=== PATIENT | female | born 2000 | race Caucasian/White ===

== ENCOUNTER 2022-04-07 21:09 | Outpatient (CLI) | payer MEDICAID, SELFPAY ==
[2022-04-07 20:55] VITALS: BMI 24.7
[2022-04-07 21:37] VITALS: BP 122/71; PULSE 95
[2022-04-07 21:58] VITALS: RESP 16
[2022-04-07 22:14] LABS: Actim Prom Negative
[2022-04-07 22:52] VITALS: BP 114/58; PULSE 79; TEMP 36.4
[2022-04-07 22:55] VITALS: BP 114/58; PULSE 79; RESP 16; TEMP 36.4
[2022-04-07 22:57] LABS: Amphetamines Screen Urine Negative (Negative); Barbiturates Screen Urine Negative (Negative); Benzodiazepines Screen Urine Negative (Negative); Cocaine Screen Urine Negative (Negative); Opiate Screen Urine Negative (Negative); PCP Screen Urine Negative (Negative); THC Screen Urine Positive (Negative)
== END 2022-04-07 22:59 | disposition home or self-care (01) ==
LOC: OPOB 21:10 → OBGYN 21:30
PROVIDERS: Visit Provider Family Medicine
DX: O26.899 Other specified pregnancy related conditions, unspecified trimester (principal); Z3A.00 Weeks of gestation of pregnancy not specified; N89.8 Other specified noninflammatory disorders of vagina
CPT/HCPCS: 59025; 80306; 84112; 99211

== ENCOUNTER 2022-07-11 21:40 | Inpatient (IN) | payer BC, MEDICAID, SELFPAY ==
[2022-07-11] VITALS (11 sets, daily range): BP systolic 107–137; BP diastolic 62–86; PULSE 88–110; BMI 26.4
[2022-07-11 21:22] LABS: Amphetamines Screen Urine Negative (Negative); Barbiturates Screen Urine Negative (Negative); Benzodiazepines Screen Urine Negative (Negative); Cocaine Screen Urine Negative (Negative); Opiate Screen Urine Negative (Negative); PCP Screen Urine Negative (Negative); THC Screen Urine Positive (Negative)
[2022-07-11 21:34] LABS: Blood Urine Neg (Negative); Glucose Urine UA Norm (Normal); Ketones Urine Negative (Negative); Nitrate Urine Negative (Negative); Protein Urine Neg (Negative); Specific Gravity, Urine 1.015 (1.005-1.030); Urine Appearance Turbid (CLEAR); Urine Color Yellow (Yellow); pH Urine 6 (5-7)
[2022-07-11 21:35] LABS: Add Urine Culture? No; Amorphous Sediment Urine 1+ /hpf; Bacteria Urine 3+ /hpf; Bilirubin Urine Neg (Negative); Leukocyte Esterase Urine 2+ (Negative); RBC Urine 0-4 /hpf (0-2); Sperm Urine 1+ /hpf; Squamous Epithelial Cell Urine 25-40 /hpf (0-5); Urobilinogen Urine Norm (Negative); WBC Urine 40-55 /hpf (0-5)
[2022-07-11 21:55] LABS: Basophils % 0.2 %; Eosinophils % 0.1 %; Hematocrit 34.1 % (37.0-47.0); Lymphocytes # 2.8 10^3/uL (1.5-6.5); Mean Corpuscular HGB Conc 32.3 g/dL (30.0-36.0); Mean Corpuscular Hemoglobin 26.4 pg (28.0-34.0); Mean Corpuscular Volume 81.8 fl (81-99); Mean Platelet Volume 10.4 fL (7.4-10.4); Monocytes # 0.8 10^3/uL (0.2-0.9); Monocytes % 6.3 %; Neutrophils # 9.49 10^3/uL (1.8-8.0); Neutrophils % 72.1 %; Nucleated Red Blood Cells % 0 %; Platelet Count 305 10^3/cmm (130-400); Red Blood Count 4.17 10^6/uL (4.1-5.3); Red Cell Distribution Width 12.1 % (12.1-15.1); White Blood Count 13.2 10^3/uL (4.5-13.0)
[2022-07-11] MEDS: ampicillin 2,000 MG in sodium chloride 0.9% (plus) 50 ML 100 MG IV (22:17)
[2022-07-11] MEDS: dextrose 5%-lactated ringers 1,000 ML 125 ML IV (22:17)
--- NOTE | 2022-07-11 22:25 | P.HP_ITS ---
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 Patient has seen Dr. Collier for 1 visit 5 to 6 weeks after her LMP and has had no care since. She states contractions began this morning approximately 7 AM and increased intensity at 7 PM. She denies any leakage of fluid or bleeding and admits to good movement. Discussion of labor and possible augmentation if contractions spaced apart. We also discussed external monitoring right now showing her contractions to be every 2 to 4 minutes, and that the baby tracing appears reassuring. Patient admitted to vaping every 2-3 hours during and uses THC (medical), denies alcohol use. Patient is unemployed. Present Details : 1 Para: 0 Review of Systems General: Reports: 10 or more systems reviewed and unremarkable except in HPI and below Medications/Allergies Home Medications Medication Instructions Recorded Confirmed Last Taken Type 1 tab PO DAILY 07/11/22 07/11/22 Unknown History Allergies Allergy/AdvReac Type Severity Reaction Status Date / Time No Known Allergies Allergy Verified 07/11/22 20:47 History History History 2 1 Term 0 Miscarriages/Ectopic 0 Living Children 0 Care Comments: LMP uncertain. Vitals/I&O/Wt Last Vital Signs Pulse 99 07/11/22 22:17 BP 130/74 07/11/22 22:17 Weight last 48 hrs Weight 67.585 kg Weight 67.585 kg Physical Exam Narrative: 21-year-old female alert and oriented x3 no acute distress HENMT: COMMON NORMALS: normocephalic, moist oral mucous membranes and dentition normal Neck/C-Spine: COMMON NORMALS: full ROM, no lymphadenopathy, no JVD and Thyroid normal Resp: AUSCULTATION: clear to auscultation bilaterally Cardio: COMMON NORMALS: no JVD, regular rate, regular rhythm and No murmurs present (Cardio) : COMMON NORMALS: Yes no CVA tenderness and Yes normal external appearance OTHER: Pelvic exam by nursing staff cervix 4 cm / 50%/-2 vertex presentation Extremity: COMMON NORMALS: normal to inspection and no clubbing, cyanosis or edema Neuro: COMMON NORMALS: patient oriented x3, CN's II-XII intact bilaterally and moves all extremities Data 07/11/22 21:40 A&P Assessment and plan (1) : Plan A. 1. 42.2 weeks IUP with uncertain LMP 2. Unknown GBS 3. Essentially no care 4. Early labor 5. Nicotine use (vapes) during 6. THC use (medical) during P 1. Admit to labor and delivery for management of labor. 2. Ampicillin 2 g IV piggyback for unknown GBS 3. lab Attestations Medical Necessity Statement*: 21-year-old female G1, P0 with uncertain LMP but gives OANH of 06/27/2022 making her 42.2 weeks gestation (postdates). Admit to labor and delivery for management of labor. Coding Level of Care Code New Pt Acute Code for Chg Fwd Patient Type New Exam Detailed Medical Decision Making Straight Forward Diagnoses Z34.90
[2022-07-11 22:40] LABS: Rubella IgG 62.8 IU/mL (0.0-10.0)
[2022-07-11 22:42] LABS: Hepatitis B Surface Antigen Non-Reactive (Nonreactive); Hepatitis C Virus Antibody Non-Reactive (Nonreactive); Rapid Plasma Reagin Syphilis Nonreactive (Nonreactive)
[2022-07-11 22:50] LABS: HIV 1 & 2 Antibody Non-Reactive (Non-Reactiv); HIV 1 & 2 Antigen Non-Reactive (Non-Reactiv)
--- NOTE | 2022-07-11 23:38 | USR_ITS ---
PROCEDURE INFORMATION: Exam: US After First Trimester, Transabdominal Exam date and time: 07/12/2022 12:30 AM Age: 21 years old Clinical indication: Lmp or gestational age (in weeks): 42w1; Labor and delivery abnormalities; Post-term (over 40 weeks to 42 weeks gestation); ; Additional info: No care, edc, estimated weight LABS AND CLINICAL REPORTS: Last menstrual period start date: 09/20/2021 Gestational age (Established): 42 w 1 d Estimated due date (Established): 06/27/2022 TECHNIQUE: Imaging protocol: Real-time transabdominal obstetrical ultrasound of the maternal pelvis and a second or third trimester with image documentation. COMPARISON: No relevant prior studies available. FINDINGS: Single living fetus in cephalic position. Anterior placenta. No visible placental abnormality on the provided images. Amniotic fluid volume appears within normal limits for gestation, ANJEL 11.7 cm. BPD: , 9.5 cm. , 38 weeks, 6 days HC: , 35.7 cm. , 41 weeks, 6 days AC: , 31.8 cm. , 35 weeks, 5 days FL: , 8.0 cm. , 41 weeks, 0 days Composite age: 39 weeks, 3 days. Estimated weight: 3428 grams, (7 lb 9 oz). heart activity documented by the technologist, 141 bpm. Some limitations in anatomy and elevation due to advanced gestation. Visualized anatomy on the provided images appears within normal limits for gestation, including four-chamber heart, stomach, kidneys, urinary bladder, three-vessel cord, spine, cerebral lateral ventricles. Cord insertion probably identified, but not well evaluated/visualized. Cerebellum identified, but not well evaluated/visualized. No visible maternal adnexal abnormality. The urinary bladder was not completely evaluated/imaged at this time. US/US OB >= 14 weeks fetus [id number] IMPRESSION: 1. Single living fetus, composite age: 39 weeks, 3 days. 2. Anterior placenta. 3. Normal amniotic fluid volume. 4. Other details discussed above.
[2022-07-12] VITALS (69 sets, daily range): BP systolic 109–152; BP diastolic 57–102; PULSE 71–122; RESP 15–18; O2SAT 93–100
[2022-07-12] MEDS: ampicillin 1,000 MG in sodium chloride 0.9% (plus) 50 ML 100 MG IV ×5 (02:15→18:00)
[2022-07-12] MEDS: fentaNYL 50 mcg/mL INJ 2mL IVP ×8 (03:04→14:24)
[2022-07-12] MEDS: ondansetron 2 mg/ML SDV 2 mL 4 MG IVP ×3 (04:34→16:43)
[2022-07-12] MEDS: oxytocin 30 UNIT/500 ML BAG IV (08:19)
--- NOTE | 2022-07-12 09:13 | P.PN_ITS ---
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 She continues to contract every 4 to 6 minutes. Baby's tracing is reassuring. Discussed Pitocin augmentation for better contraction pattern. Patient initially wanted membranes ruptured instead. Discussed long labor, and that my preference is to increase contractions frequency and intensity before rupture of membranes. Discussed first pregnancies labor may be prolonged without an adequate labor pattern. Patient understands and agrees. Labor: Station: -2 Amniotic Membrane Status: Intact Monitor Mode: None Contraction Pattern: Irregular Vitals/I&O/Wt Last Vital Signs Pulse 106 H 07/12/22 08:51 Resp 16 07/12/22 08:18 BP 131/90 07/12/22 08:51 O2 Del Method 07/11/22 22:32 07/11/22 07/12/22 07/12/22 22:59 06:59 14:59 Intake Total 50 / 50 1.017 / 1.017 Balance 50 / 50 1.017 / 1.017 Weight last 48 hrs Weight 67.585 kg Weight 67.585 kg Data 07/11/22 21:40 A&P Assessment and plan (1) : Plan A. 1. 42 weeks IUP 2. Unknown GBS 3. History of vaping throughout 4. No care P. 1. Pitocin augmentation Attestations Medical Necessity Statement*: Management of labor Coding Level of Care Code Acute Code for Chg Fwd Diagnoses Z34.90
[2022-07-12] MEDS: dextrose 5%-lactated ringers 1,000 ML 125 ML IV (09:56)
--- NOTE | 2022-07-12 11:19 | P.PN_ITS ---
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 Discussed rupture of membranes to assist with progression of labor. Labor: Station: -2 Amniotic Membrane Status: Bulging Monitor Mode: External Contraction Pattern: Irregular Vitals/I&O/Wt Last Vital Signs Pulse 89 07/12/22 10:19 Resp 16 07/12/22 09:53 BP 130/72 07/12/22 10:19 O2 Del Method 07/11/22 22:32 07/11/22 07/12/22 07/12/22 22:59 06:59 14:59 Intake Total 1100 / 1100 5.850 / 5.850 Balance 1100 / 1100 5.850 / 5.850 Weight last 48 hrs Weight 67.585 kg Weight 67.585 kg Physical Exam Back/Pelvis: OTHER: Pelvic exam?cervix 5 cm / 90%/-2 with bulging bag of water. AROM?clear fluid noted EFM?category 1 with contractions to 2 to 3 minutes. Data 07/11/22 21:40 A&P Assessment and plan (1) : Plan A. 42.2 weeks IUP Active labor Unknown GBS Vaping during pregnanc Essentially no care P. Continue present care, epidural or pain medicine at patient's request. Attestations Medical Necessity Statement*: Management of labor Coding Level of Care Code Acute Code for Chg Fwd Diagnoses Z34.90
[2022-07-12] MEDS: lactated ringers 1,000 ML 999 ML IV (16:52)
--- NOTE | 2022-07-12 17:38 | P.ANESASSM_ITS ---
Pre-Anesthetic Assessment Height/Weight: Height 1.6 m Weight 67.585 kg Pulse Resp BP Pulse Ox O2 Del Method 109 H 16 140/78 93 07/12/22 17:33 07/12/22 14:24 07/12/22 17:33 07/12/22 17:32 07/11/22 22:32 Preop Diagnosis: IUP labor epidural Familial anesthetic complications: None Was Beta Pau taken within 24 hours: N/A Was Clonidine taken within 24 hours: N/A Last intake: 07/12/22 @1200 Social No alcohol and No tobacco Exam alert, oriented x 3, clear to auscultation bilaterally and regular rate & rhythm Airway Submandibular: within normal limits Cervical ROM: within normal limits Mallampati: Class II Dentition: full History/ROS No significant history except as noted Pulmonary None reported CV/HEM None reported None reported Hepatic None reported GI None reported Metabolic None reported Musc/skel None reported Neuropsych None reported Anesthetic Plan ASA status: 2 Anesthesia: Anesthesia Evaluation and Regional (specify below) Risk of > 500 ml blood loss (7ml/kg in children): Yes, adequate IV access and fluids planned Medications/Allergies Home Medications Medication Instructions Recorded Confirmed Last Taken Type 1 tab PO DAILY 07/11/22 07/11/22 Unknown History Allergies Allergy/AdvReac Type Severity Reaction Status Date / Time No Known Allergies Allergy Verified 07/11/22 20:47 Current Medications Generic Name Dose Route Start Last Admin Trade Name Freq PRN Reason Stop Dose Admin Fentanyl 25 - 100 mcg 07/12/22 02:59 07/12/22 14:24 Fentanyl 50 Mcg/Ml Inj 2ml IVP 100 mcg Q1H PRN Administration SEVERE PAIN Dextrose/Lactated Ringer's 1,000 mls @ 125 mls/hr 07/11/22 21:30 07/12/22 16:52 Dextrose 5%-Lactated Ringers IV 0 mls/hr .Q8H QUENTIN Infusion Ampicillin Sodium 1,000 mg/ 50 mls @ 100 mls/hr 07/12/22 02:15 07/12/22 14:25 Sodium Chloride IV 100 mls/hr Q4H QUENTIN Administration Protocol Oxytocin 30 unit in 500 mls @ 1 mls/hr 07/12/22 08:00 07/12/22 11:35 Pitocin IV 5 milliunit/min .Q24H QUENTIN 5 mls/hr Titration Protocol 1 MILLIUNIT/MIN Ropivacaine 200 mg in 100 mls @ 13 mls/hr 07/12/22 17:00 07/12/22 17:37 Naropin Premix EPIDURAL 13 mls/hr .Q7H42M QUENTIN Administration Lactated Ringer's 1,000 mls @ 999 mls/hr 07/12/22 16:46 07/12/22 16:52 Lactated Ringers IV 999 mls/hr .Q1H1M PRN Administration See label comments Ondansetron HCl 4 mg 07/11/22 21:30 07/12/22 16:43 Ondansetron 2 Mg/Ml Sdv 2 Ml IVP 4 mg Q4H PRN Administration NAUSEA AND VOMITING PFSH Anesthesia Female Reproductive History : 1 Data Anesthesia 07/11/22 21:40 Short CBC 07/11/22 Range/Units 21:40 WBC 13.2 H (4.5-13.0) 10^3/uL Hgb 11.0 L (11.5-15.3) g/dL Hct 34.1 L (37.0-47.0) % MCV 81.8 (81-99) fl Plt Count 305 (130-400) 10^3/cmm Neut % (Auto) 72.1 % Neut # (Auto) 9.49 H (1.8-8.0) 10^3/uL Urine 07/11/22 Range/Units 20:43 Urine Color Yellow (Yellow) Urine Appearance Turbid A (CLEAR) Urine pH 6 (5-7) Ur Specific [place] 1.015 (1.005-1.030) Urine Protein Neg (Negative) Urine Glucose (UA) Norm (Normal) Urine Ketones Negative (Negative) Urine Nitrate Negative (Negative) Urine Bilirubin Neg (Negative) Ur Leukocyte Esterase 2+ H (Negative) Urine RBC 0-4 H (0-2) /hpf Urine WBC 40-55 H (0-5) /hpf Blood Bank 07/11/22 21:40 Blood Type O Negative Rho(D) Type Negative Antibody Screen Negative Microbiology 07/11/22 20:43 Chlamydia trachomatis (RISSA) - Final Urine Random Neisseria gonorrhoeae (RISSA) - Final Cardiac Studies: No Data to Display Anesthesia Procedures Date of Procedure 07/12/22 Epidural Time Out Performed: Yes Consents Signed: Procedure Consent Consent: requested by attending/covering physician, from patient, risks and benefits reviewed and patient agrees to proceed Lumbar Level: L4-L5 Epidural position: sitting Epidural procedure: sterile prep of area, 1% lidocaine to numb the area, 18 g needle, negative for paresthesia passed, neg for paresthesia, test dose given, 1.5% xylocaine 1:200k epi (3 ml ), placed PCEA, no systemic response, sterile dressing applied, L.U.D. no apparent complications and 0.2% Ropiavacaine @ mls/hr (13) Additional Comments: CLARA 4.5cm
--- NOTE | 2022-07-12 19:45 | P.PN_ITS ---
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 Patient comfortable with epidural EFM?category 1 Pelvic exam?cervix nearly complete with a rim/100%/0 vertex Labor: Station: -1 Amniotic Membrane Status: Leaking Monitor Mode: Palpation Contraction Pattern: Regular Vitals/I&O/Wt Last Vital Signs Pulse 78 07/12/22 19:34 Resp 16 07/12/22 14:24 BP 115/60 07/12/22 19:34 Pulse Ox 93 07/12/22 17:32 O2 Del Method 07/11/22 22:32 07/12/22 07/12/22 07/12/22 06:59 14:59 22:59 Intake Total 1100 / 1100 123.100 / 123.100 916.667 / 1039.767 Balance 1100 / 1100 123.100 / 123.100 916.667 / 1039.767 Weight last 48 hrs Weight 67.585 kg Weight 67.585 kg Physical Exam Urinary Catheter Management: Michele Latex: Cath Placed During This Visit: yes Reason for Continuing Indwelling Catheter: Required Immobilization for Trauma or Surgery or Anesthesia Urinary Catheter Date of Insertion: 07/12/22 Urinary Catheter Time of Insertion: 18:00 Data 07/11/22 21:40 Micro: Microbiology 07/11/22 20:43 Chlamydia trachomatis (RISSA) - Final Urine Random Neisseria gonorrhoeae (RISSA) - Final A&P Assessment and plan (1) : Plan A. 1. 42.3-week IUP 2. Unknown GBS 3. Essentially no care P. 1 anticipate soon Attestations Medical Necessity Statement*: Management of labor Coding Level of Care Code Acute Code for Chg Fwd Diagnoses Z34.90
--- NOTE | 2022-07-12 21:43 | PM.DELIVERY ---
Delivery Note: Date of delivery: July 12, 2022 Pre-delivery diagnoses: 42.3 weeks IUP Essentially no care Unknown GBS Vaping throughout the Post-delivery diagnoses: Same Procedure: At complete dilation +2 station the patient started pushing with nursing assistance. The vertex presented in an PAOLO presentation. No nuchal cord was not palpated the anterior followed by the posterior shoulder delivered with the remainder of the baby's body to follow. Spontaneous cry was noted. The oral and nasal pathways were bulb suctioned. After 2 minutes of delay, the cord was clamped and cut. The baby was placed on the mother's abdomen for bonding. pH and cord blood were drawn and handed off. Three-vessel cord noted. The uterus was massaged and the placenta presented in a Bill presentation with trailing membranes. The uterus firmed well Pitocin was added and IV solution and administered in a bolus manner. The vaginal vault was explored a left vaginal wall laceration was repaired as well as a small second-degree midline laceration. With good approximation and hemostasis, the uterus was again massaged and noted to be firm. Op report anesthesia: Epidural Delivering Physician: Raz MCCALLUM Estimated blood loss (mL): 400 Findings: Viable male Apgars 8/8 Weight 8 pounds 8 ounces Delivery: viable male Post-Delivery Status: Stable doing well History History History 1 Term 0 Miscarriages/Ectopic 0 Living Children 0 A&P Assessment and plan (1) : Plan A. 42.2-week IUP Essentially no care GBS unknown Vaping use through the P. Began care lab to include a fasting blood sugar. Coding Level of Care Code Acute Code for Chg Fwd Diagnoses Z34.90
[2022-07-13] VITALS (11 sets, daily range): BP systolic 108–128; BP diastolic 57–81; PULSE 80–118; RESP 15–18; TEMP 36.8–37.3; O2SAT 97–99
[2022-07-13 07:20] LABS: Glucose Fasting 101 mg/dL (74-109)
--- NOTE | 2022-07-13 08:00 | ANE.PACU2 ---
Inpatient post-anesthesia follow up: Airway intact: Yes Vital signs: Temperature 98.4 F Pulse Rate 97 Respiratory Rate 14 Blood Pressure 127/86 Pulse Oximetry 99 Oxygen Delivery Me thod Room Air Oxygen Flow Rate Fraction of Inspir ed Oxygen Hydration adequate: Yes Nausea and vomiting: No Pain level: 1 Mental status: Baseline
[2022-07-13] MEDS: docusate sodium 100 mg Capsule PO ×2 (09:37→18:29)
[2022-07-13] MEDS: prenatal vitamin Capsule 1 CAP PO (09:37)
[2022-07-13] MEDS: ibuprofen 800 mg tablet PO ×3 (09:37→21:10)
[2022-07-13 09:56] LABS: Hematocrit 29.5 % (37.0-47.0); Hemoglobin 9.3 g/dL (11.5-15.3); Mean Corpuscular HGB Conc 31.5 g/dL (30.0-36.0); Mean Corpuscular Hemoglobin 26.1 pg (28.0-34.0); Mean Corpuscular Volume 82.9 fl (81-99); Mean Platelet Volume 10.4 fL (7.4-10.4); Platelet Count 253 10^3/cmm (130-400); Red Blood Count 3.56 10^6/uL (4.1-5.3); Red Cell Distribution Width 12.3 % (12.1-15.1); White Blood Count 12.8 10^3/uL (4.5-13.0)
--- NOTE | 2022-07-13 13:11 | P.PN_ITS ---
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 Labor: Station: +2 Amniotic Membrane Status: Leaking Monitor Mode: External Contraction Pattern: Regular Post /CS: Patient comments OB post-: no complaints Vitals/I&O/Wt Last Vital Signs Temp 98.2 F 07/13/22 12:35 Pulse 84 07/13/22 12:35 Resp 18 07/13/22 05:43 BP 124/81 07/13/22 12:35 Pulse Ox 98 07/13/22 12:35 O2 Del Method 07/13/22 12:35 07/12/22 07/13/22 07/13/22 22:59 06:59 14:59 Intake Total 1297.834 / 1420.934 194.133 / 1615.067 Output Total 200 / 200 200 / 400 Balance 1097.834 / 1220.934 -5.867 / 1215.067 Weight last 48 hrs Weight 67.585 kg Weight 67.585 kg Physical Exam Back/Pelvis: OTHER: Abdomen Soft fundus firm. Lochia light. Extremity: COMMON NORMALS: no calf tenderness and no pedal edema Urinary Catheter Management: Michele Latex: Cath Placed During This Visit: yes, but has since been removed by the nurse Reason for Continuing Indwelling Catheter: Decision to DC Catheter Urinary Catheter Date of Insertion: 07/12/22 Urinary Catheter Time of Insertion: 18:00 Date Urinary Catheter Removed: 07/12/22 Time Urinary Catheter Discontinued: 20:45 Data 07/13/22 09:45 Micro: Microbiology 07/11/22 20:43 Chlamydia trachomatis (RISSA) - Final Urine Random Neisseria gonorrhoeae (RISSA) - Final A&P Assessment and plan (1) : (2) (spontaneous vaginal delivery): (3) Anemia: Plan A. S/P viable male No care Unknown GBS Acute Blood Loss anemia from delivery- Asymptomatic P. care Consult Hospital Buildings And Grounds Coordinator regarding Medicaid Resources. Attestations Medical Necessity Statement*: care . S/P Coding Level of Care Code Acute Code for Chg Fwd Diagnoses Z34.90 (spontaneous vaginal delivery) O80 Anemia D64.9
[2022-07-13] MEDS: benzocaine-menthol 78 gm Canister 1 SPRAY TOPICAL (15:09)
[2022-07-13] MEDS: acetaminophen 325 mg Tablet 650 MG PO (18:29)
[2022-07-14 04:00] VITALS: BP 100/61; PULSE 81; RESP 16; TEMP 36.9; O2SAT 98
[2022-07-14] MEDS: docusate sodium 100 mg Capsule PO (09:51)
[2022-07-14] MEDS: prenatal vitamin Capsule 1 CAP PO (09:51)
[2022-07-14] MEDS: ibuprofen 800 mg tablet PO (09:51)
[2022-07-14 10:06] VITALS: BP 126/86; PULSE 108; RESP 16; O2SAT 99
--- NOTE | 2022-07-14 10:56 | PM.OBGYDC ---
Discharge Providers SERVICES ENGINEER Date of Admission: 07/11/22 21:40 Date of Discharge: 07/14/22 Attending Provider at Admission: Venessa Crandall DO Attending Provider at Discharge: Venessa Crandall DO Diagnoses at Discharge Discharge Diagnosis (1) : Status: Acute (2) (spontaneous vaginal delivery): Details from hospital stay: 21-year-old female G1, P1 delivered via a viable male . Patient ambulating tolerating regular diet and voiding with no complications. Patient is caring for without nursing assistance. Discharge expectations and orders reviewed with patient. No heavy lifting pushing or pulling no sexual intercourse douching or tampons x6 weeks. Patient encouraged to follow-up with one of the physicians in [facility] for care. Patient is breast-feeding, encouraged to continue vitamins discussed iron and risk of constipation. VSS?afebrile Abdomen?soft fundus firm lochia light. Extremities?no edema, negative Homans' sign Status: Acute (3) Anemia: Status: Acute Reason for Visit Reason for Visit: Contractions Information Peripartum Data: Infant Delivery Method: Vaginal Physical Exam Urinary Catheter Management: Michele Latex: Cath Placed During This Visit: yes, but has since been removed by the nurse Reason for Continuing Indwelling Catheter: Decision to DC Catheter Urinary Catheter Date of Insertion: 07/12/22 Urinary Catheter Time of Insertion: 18:00 Date Urinary Catheter Removed: 07/12/22 Time Urinary Catheter Discontinued: 20:45 History History History 1 Term 0 Miscarriages/Ectopic 0 Living Children 0 Discharge Data Studies Completed and Pending Completed Studies During Hospitalization Category Date Time Status US OB greater than 14 weeks fetus [US OB >= 14 weeks Ultrasound 07/11/22 23:38 Completed fetus [id number]] Stat Radiology Impressions Ultrasound 07/11/22 23:38 IMPRESSION: 1. Single living fetus, composite age: 39 weeks, 3 days. 2. Anterior placenta. 3. Normal amniotic fluid volume. 4. Other details discussed above. Laboratory Results WBC 12.8 10^3/uL (4.5-13.0) 07/13/22 09:45 RBC 3.56 10^6/uL (4.1-5.3) L 07/13/22 09:45 Hgb 9.3 g/dL (11.5-15.3) L 07/13/22 09:45 Hct 29.5 % (37.0-47.0) L 07/13/22 09:45 MCV 82.9 fl (81-99) 07/13/22 09:45 MCH 26.1 pg (28.0-34.0) L 07/13/22 09:45 MCHC 31.5 g/dL (30.0-36.0) 07/13/22 09:45 RDW 12.3 % (12.1-15.1) 07/13/22 09:45 Plt Count 253 10^3/cmm (130-400) 07/13/22 09:45 MPV 10.4 fL (7.4-10.4) 07/13/22 09:45 Neut % (Auto) 72.1 % 07/11/22 21:40 Lymph % (Auto) 21.0 % 07/11/22 21:40 [place] % (Auto) 6.3 % 07/11/22 21:40 Eos % (Auto) 0.1 % 07/11/22 21:40 Baso % (Auto) 0.2 % 07/11/22 21:40 Neut # (Auto) 9.49 10^3/uL (1.8-8.0) H 07/11/22 21:40 Lymph # (Auto) 2.8 10^3/uL (1.5-6.5) 07/11/22 21:40 Roberts # (Auto) 0.8 10^3/uL (0.2-0.9) 07/11/22 21:40 Eos # (Auto) 0.0 10^3/uL (0.0-0.8) 07/11/22 21:40 Baso # (Auto) 0.0 10^3/uL (0.0-0.1) 07/11/22 21:40 Nucleated RBC % (auto) 0 % 07/11/22 21:40 Nucleated RBCs # 0.0 /100WBC 07/11/22 21:40 Fasting Glucose 101 mg/dL (74-109) 07/13/22 06:40 Urine Color Yellow (Yellow) 07/11/22 20:43 Urine Appearance Turbid (CLEAR) A 07/11/22 20:43 Urine pH 6 (5-7) 07/11/22 20:43 Ur Specific [place] 1.015 (1.005-1.030) 07/11/22 20:43 Urine Protein Neg (Negative) 07/11/22 20:43 Urine Glucose (UA) Norm (Normal) 07/11/22 20: Urine Ketones Negative (Negative) 07/11/22 20:43 Urine Blood Neg (Negative) 07/11/22 20:43 Urine Nitrate Negative (Negative) 07/11/22 20: Urine Bilirubin Neg (Negative) 07/11/22 20: Urine Urobilinogen Norm mg/dL (Negative) 07/11/22 20:43 Ur Leukocyte Esterase 2+ (Negative) H 07/11/22 20:43 Urine RBC 0-4 /hpf (0-2) H 07/11/22 20: Urine WBC 40-55 /hpf (0-5) H 07/11/22 20:43 Ur Squamous Epith Cells 25-40 /hpf (0-5) H 07/11/22 20:43 Amorphous Sediment 1+ /hpf 07/11/22 20:43 Urine Bacteria 3+ /hpf (NONE) H 07/11/22 20:43 Urine Sperm 1+ /hpf 07/11/22 20:43 Urine Opiates Screen Negative ng/mL (Negative) 07/11/22 20:43 Ur Barbiturates Screen Negative ng/mL (Negative) 07/11/22 20:43 Ur Phencyclidine Scrn Negative ng/mL (Negative) 07/11/22 20:43 Ur Amphetamines Screen Negative ng/mL (Negative) 07/11/22 20:43 U Benzodiazepines Scrn Negative ng/mL (Negative) 07/11/22 20:43 Urine Cocaine Screen Negative ng/mL (Negative) 07/11/22 20:43 U Marijuana (THC) Screen Positive ng/mL (Negative) H 07/11/22 20:43 RPR Nonreactive (Nonreactive) 07/11/22:40 Hep Bs Antigen Non-reactive (Nonreactive) 07/11/22:40 Hepatitis C Antibody Non-reactive (Nonreactive) 07/11/22 21:40 HIV 1&2 Ab & HIV 1 Ag Non-reactive (Non-Reactiv) 07/11/22:40 HIV 1&2 Antibody Non-reactive (Non-Reactiv) 07/11/22:40 Rubella IgG Antibody 62.8 IU/mL (0.0-10.0) H 07/11/22 21:40 Blood Type O Negative 07/11/22 21:40 Rho(D) Type Negative 07/11/22 21:40 Antibody Screen Negative 07/11/22 21:40 Vitals Last Vital Signs Temp 98.4 F 07/14/22 04:00 Pulse 108 H 07/14/22 10:06 Resp 16 07/14/22 10:06 BP 126/86 07/14/22 10:06 Pulse Ox 99 07/14/22 10:06 O2 Del Method 07/14/22 10:06 Discharge Plan Discharge Patient Disposition: Home Condition: Stable Prescriptions: Continued 1 tab PO DAILY Discharge Orders: Discharge Order (Routine); Ordered 07/14/22 Ordered By: Venessa Crandall Referrals: Rahel Moralez MD [Physician] - Discharge Diet: Regular Discharge Activity: Increase activity as tolerated Patient Instructions: Depression (GEN), Perineal Care (GEN), Bleeding (GEN), Preeclampsia and Eclampsia After Delivery (GEN), OB Discharge Report, OB Food/Drug Interaction Guide, OB Care at Home, Opioid Safety, Abnormal Bleeding Activity Restrictions/Additional Instructions: Pelvic rest x 6wks. Assessment: 1. S/P 2. No Care 3. Anemia- Asymptomatic 4. Hx of Vaping through 5. Unknown GBS Plan of Treatment: 1. DC to home 2. Advised F/U with in [facility] Physician for PP care. Discharge Attestations SERVICES ENGINEER Time Spent in Discharge Care*: less than 30 min Coding Level of Care Code Acute Code for Chg Fwd Diagnoses Z34.90 (spontaneous vaginal delivery) O80 Anemia D64.9
[2022-07-14 11:45] VITALS: BP 127/86; PULSE 97; RESP 14; O2SAT 99
== END 2022-07-14 11:50 | disposition home or self-care (01) | DRG 806 ==
LOC: OPOB 21:41 → OBGYN 21:41
PROVIDERS: Admitting Provider Obstetrics & Gynecology; Visit Provider Obstetrics & Gynecology
DX: O99.02 Anemia complicating childbirth (principal); O99.324 Drug use complicating childbirth; Z37.0 Single live birth; D64.9 Anemia, unspecified; O99.334 Smoking (tobacco) complicating childbirth; F17.290 Nicotine dependence, other tobacco product, uncomplicated; F12.90 Cannabis use, unspecified, uncomplicated; O70.1 Second degree perineal laceration during delivery; Z3A.39 39 weeks gestation of pregnancy
CPT/HCPCS: 12345; 36415; 51702; 59025; 59409; 76805; 80306; 81001; 82947; 85025; 85027; 86592; 86762; 86803; 86850; 86900; 87340; 87491; 87591; 87806; 96374; 96376; 99211; J0290; J2405; J2590; J2795; J3010; J3490; J7120; J7121

== ENCOUNTER 2024-08-10 16:53 | Emergency (ER) | payer BC, MEDICAID, SELFPAY ==
[2024-08-10 17:11] VITALS: BP 107/72; PULSE 77; RESP 14; TEMP 36.9; O2SAT 99
[2024-08-10 17:16] LABS: Basophils % 0.1 %; Eosinophils % 0.2 %; Hematocrit 45.9 % (36-47); Lymphocytes # 0.9 10^3/uL (0.8-4.8); Mean Corpuscular HGB Conc 33.1 g/dL (30-55); Mean Corpuscular Hemoglobin 29.7 pg (27-33); Mean Corpuscular Volume 89.8 fl (85-98); Mean Platelet Volume 10.3 fL (7.4-10.4); Monocytes # 0.3 10^3/uL (0.2-0.9); Monocytes % 2.6 %; Neutrophils # 9.22 10^3/uL (1.8-7.7); Nucleated Red Blood Cells % 0 %; Platelet Count 267 10^3/cmm (157-399); Red Blood Count 5.11 10^6/uL (3.85-5.65); Red Cell Distribution Width 11.7 % (12.1-15.1); White Blood Count 10.47 10^3/uL (3.29-11.43)
--- NOTE | 2024-08-10 17:22 | ED_ITS ---
HPI - Abdominal Pain 2 General: Chief Complaint: Abdominal Pain Stated Complaint: abd pain Time Seen by Provider: 08/10/24 17:11 Source: patient Mode of arrival: ambulatory Limitations: no limitations History of Present Illness: 24-year-old female states she had been h aving epigastric along with diffuse abdominal pains been going on throughout the day and started yesterday. States it has been a cramping pain she rates a 6 out of 10 currently she has had some vomiting she denies diarrhea denies any fever denies any dysuria. Associated Symptoms: Reports nausea and vomiting; Denies chills, diarrhea, dysuria and fever(s) Related Data Date of Last Menstrual Period: 08/05/24 Home Medications ?Medication ?Instructions ?Recorded ?Confirmed 1 tab PO DAILY 07/11/2206/23 Previous Rx's ?Medication ?Instructions ?Recorded ondansetron 4 mg disintegrating 4 mg PO Q6H PRN nausea and 08/10/24 tablet vomiting #14 tabs Allergies Allergy/AdvReac Type Severity Reaction Status Date / Time No Known Allergies Allergy Verified 08/10/24 17:17 Review of Systems 2 Const: Denies: fever(s), chills, body aches or change in appetite ENMT: Denies: throat pain or dental pain Card: Denies: chest pain Resp: Denies: dyspnea GI: Reports: abdominal pain, nausea and vomiting; Denies: diarrhea : Denies: dysuria Musc: Denies: neck pain or back pain Skin/Breast: Denies: rash Neuro: Denies: headache(s) [facility] ED 2 Female Reproductive History: Date of last menstrual period: 08/05/24 Physical Exam 2 Const: COMMON NORMALS: no acute distress, patient oriented x3 and healthy appearing HENMT: COMMON NORMALS: normocephalic and atraumatic HEAD & SCALP: n ormocephalic and atraumatic Neck/C-Spine: COMMON NORMALS: full ROM and supple Chest: COMMONS NORMALS: normal inspection of the chest Resp: COMMON NORMALS: normal respiratory effort Cardio: COMMON NORMALS: regular rate, regular rhythm and No murmurs present (Cardio) RATE: regular rate RHYTHM: regular rhythm GI: COMMON NORMALS: Normal to inspection, nondistended, normoactive bowel sounds present, Soft to palpation and no masses PALPATION: Yes Soft to palpation OTHER: diffuse mild tenderness Extremity: COMMON NORMALS: normal to inspection and full ROM Neuro: COMMON NORMALS: patient oriented x3, moves all extremities and no focal motor deficits Psych: COMMON NORMALS: mental status grossly normal, Normal thought process present and cooperative THOUGHT PROCESS: Normal thought process present Skin: COMMON NORMALS: no rashes or lesions noted and no wounds GENERAL SKIN EXAM: no rashes or lesions noted Course 2 Vital Signs: Vital signs: Vital Signs Temperature 98.4 F 08/10/24 17:11 Pulse Rate 67 08/10/24 19:30 Respiratory Rate 14 08/10/24 17:11 Blood Pressure 135/79 08/10/24 19:30 Pulse Oximetry 98 08/10/24 19:30 Oxygen Delivery Me thod Room Air 08/10/24 17:11 MDM - Abdominal Pain Medical Decision Making Patient presents here with vomiting CT showed likely an ileus she has no signs of a small bowel obstruction here she has been able tolerate p.o. here she been having bowel movements informed her to do a liquid diet for next 2 days will prescribe her Zofran she is to return she continues to vomit she understands agrees to plan. Medical Records I reviewed the patient's medical records. Lab Data I reviewed the patient's lab results. 08/10/24 17:10 08/10/24 17:10 Labs/Radiology: Radiology Impressions Abdomen/Pelvis CT 08/10/24 17:22 IMPRESSION: 1. There is a short segment of dilated fluid-filled small bowel in the mid abdomen (series 5, image 29). There is air and stool in the colon and rectum. It is unclear whether this represents a partial small bowel obstruction or ileus. 2. No free air or significant free fluid in the abdomen or pelvis. 3. No evidence of appendicitis. Laboratory Results WBC 10.47 10^3/uL (3.29-11.43) 08/10/24 17:10 RBC 5.11 10^6/uL (3.85-5.65) 08/10/24 17:10 Hgb 15.20 g/dL (11.27-16.99) 08/10/24 17:10 Hct 45.9 % (36-47) 08/10/24 17:10 MCV 89.8 fl (85-98) 08/10/24 17:10 MCH 29.7 pg (27-33) 08/10/24 17:10 MCHC 33.1 g/dL (30-55) 08/10/24 17:10 RDW 11.7 % (12.1-15.1) L 08/10/24 17:10 Plt Count 267 10^3/cmm (157-399) 08/10/24 17:10 MPV 10.3 fL (7.4-10.4) 08/10/24 17:10 Neut % (Auto) 88.0 % 08/10/24 17:10 Lymph % (Auto) 9.0 % 08/10/24 17:10 [place] % (Auto) 2.6 % 08/10/24 17:10 Eos % (Auto) 0.2 % 08/10/24 17:10 Baso % (Auto) 0.1 % 08/10/24 17:10 Neut # (Auto) 9.22 10^3/uL (1.8-7.7) H 08/10/24 17:10 Lymph # (Auto) 0.9 10^3/uL (0.8-4.8) 08/10/24 17:10 [place] # (Auto) 0.3 10^3/uL (0.2-0.9) 08/10/24 17:10 Eos # (Auto) 0.0 10^3/uL (0.0-0.8) 08/10/24 17:10 Baso # (Auto) 0.0 10^3/uL (0.0-0.1) 08/10/24 17:10 Nucleated RBC % (auto) 0 % 08/10/24 17:10 Nucleated RBCs # 0.0 /100WBC 08/10/24 17:10 Sodium 138 mmol/L (136-145) 08/10/24 17:10 Potassium 3.9 mmol/L (3.5-5.1) 08/10/24 17:10 Chloride 96 mmol/L (98-107) L 08/10/24 17:10 Carbon Dioxide 27 mmol/L (22-29) 08/10/24 17:10 Anion Gap 18.9 (5-19) 08/10/24 17:10 BUN 8 mg/dL (6-20) 08/10/24 17:10 Creatinine 0.6 mg/dL (0.5-0.9) 08/10/24 17:10 GFR Calculation 125.0 mL/min (90-130) 08/10/24 17:10 Glucose 122 mg/dL (65-115) H 08/10/24 17:10 Calculated Osmolality 286 mOsm/kg (285-295) 08/10/24 17:10 Calcium 9.4 mg/dL (8.5-10.5) 08/10/24 17:10 Total Bilirubin 1.1 mg/dL (0.15-1.2) 08/10/24 17:10 AST 16 U/L (0-32) 08/10/24 17:10 ALT 9 U/L (0-33) 08/10/24 17:10 Alkaline Phosphatase 103 U/L (35-105) 08/10/24 17:10 Total Protein 7.9 g/dL (6.6-8.7) 08/10/24 17:10 Albumin 4.8 g/dL (3.5-5.2) 08/10/24 17:10 Globulin 3.1 g/dL (1.3-4.6) 08/10/24 17:10 Lipase 29 U/L (13-60) 08/10/24 17:10 HCG, Qual Negative (Negative) 08/10/24 17:10 Urine Color Yellow (Yellow) 08/10/24 18:40 Urine Appearance Clear (CLEAR) 08/10/24 18:40 Urine pH 8.0 (5-7) A 08/10/24 18:40 Ur Specific [place] 1.077 (1.005-1.030) H 08/10/24 18:40 Urine Protein 1+ (Negative) A 08/10/24 18:40 Urine Glucose (UA) Negative (Normal) 08/10/24 18:40 Urine Ketones 3+ (Negative) H 08/10/24 18:40 Urine Blood Negative (Negative) 08/10/24 18:40 Urine Nitrate Negative (Negative) 08/10/24 18:40 Urine Bilirubin Negative (Negative) 08/10/24 18:40 Urine Urobilinogen 1.0 mg/dL (Negative) 08/10/24 18:40 Ur Leukocyte Esterase Negative (Negative) 08/10/24 18:40 Urine RBC None /hpf (0-2) 08/10/24 18:40 Urine WBC 0-4 /hpf (0-5) H 08/10/24 18:40 Ur Squamous Epith Cells 5-10 /hpf (0-5) H 08/10/24 18:40 Amorphous Sediment Not Reportable 08/10/24 18:40 Urine Bacteria Trace /hpf (NONE) 08/10/24 18:40 Hyaline Casts 0-4 /lpf H 08/10/24 18:40 All radiology interpretation(s) finalized by discharge Discharge Plan Discharge Patient Disposition: Home Clinical Impression: Abdominal pain Condition: Stable Prescriptions: New ondansetron 4 mg tablet,disintegrating 4 mg PO Q6H PRN (Reason: nausea and vomiting) Qty: 14 0RF No Action 1 tab PO DAILY Discharge Orders: Discharge ED (Routine); Ordered 08/10/24 Ordered By: Kindra Reyes Discharge Diet: Advance as tolerated Discharge Activity: Resume usual activity Patient Instructions: Acute Nausea and Vomiting (ED), Abdominal Pain (ED) Print Language: Thai Coding Level of Care Code ED Design Engineering Manager for Danny Munoz
--- NOTE | 2024-08-10 17:22 | CTR_ITS ---
PROCEDURE INFORMATION: Exam: CT Abdomen And Pelvis With Contrast Exam date and time: 08/10/2024 6:02 PM Age: 24 years old Clinical indication: Abdominal pain; Epigastric; Additional info: Abd pain TECHNIQUE: Imaging protocol: Computed tomography of the abdomen and pelvis with contrast. Radiation optimization: All CT scans at this facility use at least one of these dose optimization techniques: automated exposure control; mA and/or kV adjustment per patient size (includes targeted exams where dose is matched to clinical indication); or iterative reconstruction. Contrast material: OMNIPAQUE 350; Contrast volume: 100 ml; Contrast route: INTRAVENOUS (IV); COMPARISON: US OB >= 14 weeks fetus [id number] 07/12/2022 12:30 AM RADIATION DOSE METRICS: Total DLP (mGy-cm): 309.35 FINDINGS: Liver: Normal. No mass. Gallbladder and biliary ducts: Normal. No calcified stones. No ductal dilation. Pancreas: Normal. No ductal dilation. Spleen: Normal. No splenomegaly. Adrenal glands: Normal. No mass. Kidneys and ureters: Normal. No hydronephrosis. Stomach and bowel: There is a short segment of dilated fluid-filled small bowel in the mid abdomen (series 5, image 29). There is air and stool in the colon and rectum. It is unclear whether this represents a partial small bowel obstruction or ileus. Appendix: No evidence of appendicitis. Intraperitoneal space: Unremarkable. No free air. No significant fluid collection. Vasculature: Unremarkable. No abdominal aortic aneurysm. Lymph nodes: Unremarkable. No enlarged lymph nodes. Urinary bladder: Unremarkable as visualized. Reproductive: Unremarkable as visualized. Bones/joints: Unremarkable. No acute fracture. Soft tissues: Unremarkable. CT/CT abdomen pelvis w con* [id number] IMPRESSION: 1. There is a short segment of dilated fluid-filled small bowel in the mid abdomen (series 5, image 29). There is air and stool in the colon and rectum. It is unclear whether this represents a partial small bowel obstruction or ileus. 2. No free air or significant free fluid in the abdomen or pelvis. 3. No evidence of appendicitis.
[2024-08-10 17:34] LABS: Alanine Aminotransferase 9 U/L (0-33); Albumin Level 4.8 g/dL (3.5-5.2); Alkaline Phosphatase 103 U/L (35-105); Anion Gap 18.9 (5-19); Aspartate Amino Transferase 16 U/L (0-32); Blood Urea Nitrogen 8 mg/dL (6-20); Calcium 9.4 mg/dL (8.5-10.5); Carbon Dioxide 27 mmol/L (22-29); Chloride 96 mmol/L (98-107); Creatinine Clr Calc Pharmacy 125.6527; Globulin 3.1 g/dL (1.3-4.6); Glucose 122 mg/dL (65-115); Lipase 29 U/L (13-60); Osmolality Calculated 286 mOsm/kg (285-295); Potassium 3.9 mmol/L (3.5-5.1); Sodium 138 mmol/L (136-145); Total Bilirubin 1.1 mg/dL (0.15-1.2); Total Protein 7.9 g/dL (6.6-8.7)
[2024-08-10] MEDS: ondansetron 2 mg/ML SDV 2 mL 4 MG IVP (17:39)
[2024-08-10] MEDS: lidocaine 2% viscous 15 ML, aluminum-mag hydrox-simethicon 30 ML, sucralfate oral liq 1 GM PO (17:39)
[2024-08-10 17:51] LABS: HCG, Serum Qual Negative (Negative)
[2024-08-10] MEDS: iohexol 350 mg/mL 500 mL Btl (per mL) IV (18:06)
[2024-08-10 18:17] VITALS: PULSE 75; O2SAT 99
[2024-08-10 18:50] LABS: Bilirubin Urine Negative (Negative); Blood Urine Negative (Negative); Glucose Urine UA Negative (Normal); Ketones Urine 3+ (Negative); Leukocyte Esterase Urine Negative (Negative); Nitrate Urine Negative (Negative); Protein Urine 1+ (Negative); Urine Appearance Clear (CLEAR); Urine Color Yellow (Yellow)
[2024-08-10 18:57] LABS: Add Urine Microscopic? YES; Bacteria Urine TRACE /hpf; Hyaline Casts Urine 0-4 /lpf; Specific Gravity, Urine 1.077 (1.005-1.030); UA Manual Slide Review YES; UA Slide Review UA Slide Review Perf; WBC Urine 0-4 /hpf (0-5)
[2024-08-10 19:30] VITALS: BP 135/79; PULSE 67; O2SAT 98
== END 2024-08-10 19:30 | disposition home or self-care (01) ==
PROVIDERS: Physician Assistant; Emergency Provider Emergency Medicine
DX: R10.13 Epigastric pain (principal)
CPT/HCPCS: 36415; 74177; 80053; 81001; 83690; 84703; 85025; 96374; 99285; J2405

== ENCOUNTER 2024-08-13 11:00 | Emergency (ER) | payer BC, MEDICAID, SELFPAY ==
[2024-08-13] VITALS (7 sets, daily range): BP systolic 114–124; BP diastolic 64–76; PULSE 88–103; O2SAT 96–99; BMI 22.4
--- NOTE | 2024-08-13 11:15 | CTR_ITS ---
PROCEDURE INFORMATION: Exam: CT Abdomen And Pelvis With Contrast Exam date and time: 08/13/2024 12:29 PM Age: 24 years old Clinical indication: Abdominal pain TECHNIQUE: Imaging protocol: Computed tomography of the abdomen and pelvis with contrast. Radiation optimization: All CT scans at this facility use at least one of these dose optimization techniques: automated exposure control; mA and/or kV adjustment per patient size (includes targeted exams where dose is matched to clinical indication); or iterative reconstruction. Contrast material: OMNI 350; Contrast volume: 80 ml; Contrast route: INTRAVENOUS (IV); COMPARISON: CT abdomen pelvis w con* [id number] 08/10/2024 6:02 PM RADIATION DOSE METRICS: Total DLP (mGy-cm): 310.93 FINDINGS: Lungs: Visualized lung bases are clear. Liver: Normal appearance of the liver. Gallbladder and biliary ducts: Layering density in the gallbladder likely representing sludge. No CT apparent cholelithiasis. Pancreas: Normal appearance of the pancreas. No ductal dilation. Spleen: Normal appearance of the spleen. Adrenal glands: Normal appearance of both adrenal glands. Kidneys and ureters: Normal appearance of both kidneys. No evidence of nephrolithiasis or hydronephrosis. No renal mass or cyst is seen. Stomach and bowel: There is mucosal enhancement in the stomach with suggestion of wall thickening in the distal stomach. Normal appearance of the small bowel without luminal dilation suggested. Mild proximal colonic stool. Appendix: The appendix is identified and normal in appearance. No evidence of appendicitis. Intraperitoneal space: Trace free fluid dependently in the pelvis. No evidence of free air. Vasculature: Normal appearance of the abdominal aorta. No evidence of atherosclerotic disease or aneurysm. Lymph nodes: Unremarkable. No enlarged lymph nodes. Urinary bladder: [place] of the urinary bladder are mildly thickened although this is nonspecific given the nondistended state of the bladder. Reproductive: Normal appearance of the uterus. Ovaries are not well distinguished. Bones/joints: Regional osseous structures have a normal appearance. No fracture, aggressive osseous lesion or significant degenerative change is seen. Soft tissues: The visualized superficial soft tissues have a normal appearance. CT/CT abdomen pelvis w con* [id number] IMPRESSION: 1. Mucosal enhancement within the stomach. There is wall thickening within the distal stomach. Correlate clinically for gastritis. 2. Mild wall thickening of the urinary bladder, likely artifactual from incomplete distension. As a precaution correlate clinically to exclude cystitis.
[2024-08-13 11:33] LABS: Bilirubin Urine Negative (Negative); Blood Urine Negative (Negative); Glucose Urine UA Negative (Normal); HCG Qualitative Urine. Negative (Negative); Ketones Urine 3+ (Negative); Leukocyte Esterase Urine Negative (Negative); Nitrate Urine Negative (Negative); Protein Urine Trace (Negative); Specific Gravity, Urine 1.027 (1.005-1.030); Urine Appearance Cloudy (CLEAR); Urine Color Yellow (Yellow); pH Urine 5.5 (5-7)
[2024-08-13 11:48] LABS: Bacteria Urine TRACE /hpf; Squamous Epithelial Cell Urine 21-50 /hpf (0-5); UA Manual Slide Review YES; UA Slide Review UA Slide Review Perf; WBC Urine 0-4 /hpf (0-5)
[2024-08-13 12:17] LABS: Basophils % 0.3 %; Eosinophils % 0.1 %; Hematocrit 44.3 % (36-47); Lymphocytes # 2.4 10^3/uL (0.8-4.8); Lymphocytes % 17.3 %; Mean Corpuscular HGB Conc 34.3 g/dL (30-55); Mean Corpuscular Volume 87.5 fl (85-98); Mean Platelet Volume 10.5 fL (7.4-10.4); Monocytes # 1.1 10^3/uL (0.2-0.9); Monocytes % 7.7 %; Neutrophils # 10.38 10^3/uL (1.8-7.7); Neutrophils % 74.3 %; Nucleated Red Blood Cells % 0 %; Platelet Count 287 10^3/cmm (157-399); Red Blood Count 5.06 10^6/uL (3.85-5.65); Red Cell Distribution Width 11.5 % (12.1-15.1); White Blood Count 13.96 10^3/uL (3.29-11.43)
[2024-08-13] MEDS: iohexol 350 mg/mL 500 mL Btl (per mL) IV (12:31)
[2024-08-13 12:35] LABS: Alanine Aminotransferase 10 U/L (0-33); Albumin Level 4.5 g/dL (3.5-5.2); Alkaline Phosphatase 93 U/L (35-105); Anion Gap 14.5 (5-19); Aspartate Amino Transferase 14 U/L (0-32); Blood Urea Nitrogen 19 mg/dL (6-20); C Reactive Protein 36.9 mg/L (0.0-4.9); Calcium 9.6 mg/dL (8.5-10.5); Carbon Dioxide 28 mmol/L (22-29); Chloride 92 mmol/L (98-107); Creatinine Clr Calc Pharmacy 108.4243; Globulin 3.1 g/dL (1.3-4.6); Glomerular Filtration Rate 104.6 mL/min (90-130); Glucose 100 mg/dL (65-115); Osmolality Calculated 274 mOsm/kg (285-295); Potassium 3.5 mmol/L (3.5-5.1); Sodium 131 mmol/L (136-145); Total Bilirubin 1.8 mg/dL (0.15-1.2); Total Protein 7.6 g/dL (6.6-8.7)
[2024-08-13 12:44] LABS: Lipase 621 U/L (13-60)
--- NOTE | 2024-08-13 12:44 | ED_ITS ---
HPI - Abdominal Pain 2 General: Chief Complaint: Abdominal Pain Stated Complaint: abd pain Time Seen by Provider: 08/13/24 12:35 History of Present Illness: 24-year-old female presents to the [facility] ency room was complaints of abdominal pain she was seen a couple days ago she reports she had an obstruction although I looked at the CT report and Dr. Reyes note she had an ileus thought to likely be gastroenteritis she was discharged home with supportive cares. She states she has not had a bowel movement over the last couple of days she has not had any vomiting but has been very nauseous. She states she has pain supraumbilica up into the left upper quadrant l. At times it radiates into her back across her left side. She denies hematochezia melena hematemesis or coffee-ground emesis Associated Symptoms: Reports nausea; Denies chills, coffee ground emesis, diarrhea, dysuria, fever(s), hematochezia, hematemesis, melena and vomiting Related Data Previous Rx's ?Medication ?Instructions ?Recorded ondansetron 4 mg disintegrating 4 mg PO Q6H PRN nausea and 08/10/24 tablet vomiting #14 tabs ondansetron HCl 4 mg tablet 4 mg PO Q6H PRN nausea and 08/13/24 vomiting #20 tabs Allergies Allergy/AdvReac Type Severity Reaction Status Date / Time No Known Allergies Allergy Verified 08/10/24 17:17 Review of Systems 2 Const: Denies: fever(s) or chills Card: Denies: chest pain Resp: Denies: dyspnea GI: Reports: abdominal pain and nausea; Denies: vomiting, hematemesis, coffee ground emesis, diarrhea, hematochezia or melena : Denies: dysuria, urinary frequency or urinary urgency Musc: Denies: neck pain or back pain Skin/Breast: Denies: rash Physical Exam 2 Const: GENERAL APPEARANCE: cooperative ORIENTATION/CONSCIOUSNESS: Yes awake, Yes oriented to person, Yes oriented to place and Yes oriented to time HENMT: COMMON NORMALS: normocephalic, atraumatic and hearing grossly normal bilaterally HEAD & SCALP: normocephalic and atraumatic Resp: COMMON NORMALS: normal respiratory effort, No retractions, No use of accessory muscles and clear to auscultation bilaterally AUSCULTATION: clear to auscultation bilaterally Cardio: COMMON NORMALS: regular rate, regular rhythm and No murmurs present (Cardio) RATE: regular rate RHYTHM: regular rhythm GI: COMMON NORMALS: Soft to palpation and No hepatosplenomegaly present A USCULTATION: Yes normoactive bowel sounds PALPATION: Yes Soft to palpation, No Tenderness to palpation present (GI), No Guarding due to palpation present (GI) and Yes No hepatosplenomegaly present Extremity: COMMON NORMALS: normal to inspection, capillary refill normal, no clubbing, cyanosis or edema, no calf tenderness and no pedal edema Neuro: SENSORIUM/ORIENTATION: Yes oriented to person, Yes oriented to place and Yes oriented to time Skin: COMMON NORMALS: no rashes or lesions noted GENERAL SKIN EXAM: no rashes or lesions noted Course 2 Vital Signs: Vital signs: Vital Signs Pulse Rate 95 08/13/24 13:12 Blood Pressure 114/69 08/13/24 13:12 Pulse Oximetry 98 08/13/24 13:12 Oxygen Delivery Me thod Room Air 08/13/24 11:08 MDM - Abdominal Pain Medical Decision Making Patient referring pain left upper quadrant her T. bili is elevated and her lipase elevated these are both new changes from her previous visit CT did not show any signs of acute pancreatitis there is a question of sludge in the gallbladder gallbladder ultrasound does not show any dilation of the common bile duct no sludge no acute cholecystitis. She does not really have any biliary colic at this time. Her white count is elevated as well. Recommended that she be admitted given her new findings of pancreatitis with pain consistent with this and also concerning elevation of her T. bili. She denies regular use of any alcohol. She wants to go home we are unable to convince her otherwise and she left AMA she was told that she is welcome to return at any time. Did give her ondansetron encouraged her to stick to a very strict clear liquid diet can advance as pain decreases. If patient has worsening pain she should return to the nearest emergency room. Medical Records I reviewed the patient's medical records. Lab Data I reviewed the patient's lab results. 08/13/24 12:00 08/13/24 12:00 Labs/Radiology: Radiology Impressions Abdomen/Pelvis CT 08/13/24 11:15 IMPRESSION: 1. Mucosal enhancement within the stomach. There is wall thickening within the distal stomach. Correlate clinically for gastritis. 2. Mild wall thickening of the urinary bladder, likely artifactual from incomplete distension. As a precaution correlate clinically to exclude cystitis. Gallbladder Ultrasound 08/13/24 13:59 IMPRESSION: 1. Unremarkable right upper quadrant ultrasound. No evidence of cholelithiasis or cholecystitis. No sonographically apparent sludge as questioned on comparison CT. Laboratory Results WBC 13.96 10^3/uL (3.29-11.43) H 08/13/24 12:00 RBC 5.06 10^6/uL (3.85-5.65) 08/13/24 12:00 Hgb 15.20 g/dL (11.27-16.99) 08/13/24 12:00 Hct 44.3 % (36-47) 08/13/24 12:00 MCV 87.5 fl (85-98) 08/13/24 12:00 MCH 30.0 pg (27-33) 08/13/24 12:00 MCHC 34.3 g/dL (30-55) 08/13/24 12:00 RDW 11.5 % (12.1-15.1) L 08/13/24 12:00 Plt Count 287 10^3/cmm (157-399) 08/13/24 12:00 MPV 10.5 fL (7.4-10.4) H 08/13/24 12:00 Neut % (Auto) 74.3 % 08/13/24 12:00 Lymph % (Auto) 17.3 % 08/13/24 12:00 [place] % (Auto) 7.7 % 08/13/24 12:00 Eos % (Auto) 0.1 % 08/13/24 12:00 Baso % (Auto) 0.3 % 08/13/24 12:00 Neut # (Auto) 10.38 10^3/uL (1.8-7.7) H 08/13/24 12:00 Lymph # (Auto) 2.4 10^3/uL (0.8-4.8) 08/13/24 12:00 [place] # (Auto) 1.1 10^3/uL (0.2-0.9) H 08/13/24 12:00 Eos # (Auto) 0.0 10^3/uL (0.0-0.8) 08/13/24 12:00 Baso # (Auto) 0.0 10^3/uL (0.0-0.1) 08/13/24 12:00 Nucleated RBC % (auto) 0 % 08/13/24 12:00 Nucleated RBCs # 0.0 /100WBC 08/13/24 12:00 Sodium 131 mmol/L (136-145) L 08/13/24 12:00 Potassium 3.5 mmol/L (3.5-5.1) 08/13/24 12:00 Chloride 92 mmol/L (98-107) L 08/13/24 12:00 Carbon Dioxide 28 mmol/L (22-29) 08/13/24 12:00 Anion Gap 14.5 (5-19) 08/13/24 12:00 BUN 19 mg/dL (6-20) 08/13/24 12:00 Creatinine 0.7 mg/dL (0.5-0.9) 08/13/24 12:00 GFR Calculation 104.6 mL/min (90-130) 08/13/24 12:00 Glucose 100 mg/dL (65-115) 08/13/24 12:00 Calculated Osmolality 274 mOsm/kg (285-295) L 08/13/24 12:00 Lactic Acid 1.0 mmol/L (0.5-2.2) 08/13/24 12:00 Calcium 9.6 mg/dL (8.5-10.5) 08/13/24 12:00 Total Bilirubin 1.8 mg/dL (0.15-1.2) H 08/13/24 12:00 AST 14 U/L (0-32) 08/13/24 12:00 ALT 10 U/L (0-33) 08/13/24 12:00 Alkaline Phosphatase 93 U/L (35-105) 08/13/24 12:00 C-Reactive Protein 36.9 mg/L (0.0-4.9) H 08/13/24 12:00 Total Protein 7.6 g/dL (6.6-8.7) 08/13/24 12:00 Albumin 4.5 g/dL (3.5-5.2) 08/13/24 12:00 Globulin 3.1 g/dL (1.3-4.6) 08/13/24 12:00 Lipase 621 U/L (13-60) H 08/13/24 12:00 HCG, Qual Negative (Negative) 08/13/24 11:21 Urine Color Yellow (Yellow) 08/13/24 11:21 Urine Appearance Cloudy (CLEAR) A 08/13/24 11:21 Urine pH 5.5 (5-7) 08/13/24 11:21 Ur Specific [place] 1.027 (1.005-1.030) 08/13/24 11:21 Urine Protein Trace (Negative) A 08/13/24 11:21 Urine Glucose (UA) Negative (Normal) 08/13/24 11:21 Urine Ketones 3+ (Negative) H 08/13/24 11:21 Urine Blood Negative (Negative) 08/13/24 11:21 Urine Nitrate Negative (Negative) 08/13/24 11:21 Urine Bilirubin Negative (Negative) 08/13/24 11:21 Urine Urobilinogen 1.0 mg/dL (Negative) 08/13/24 11:21 Ur Leukocyte Esterase Negative (Negative) 08/13/24 11:21 Urine RBC None /hpf (0-2) 08/13/24 11:21 Urine WBC 0-4 /hpf (0-5) H 08/13/24 11:21 Ur Squamous Epith Cells 21-50 /hpf (0-5) H 08/13/24 11:21 Amorphous Sediment Not Reportable 08/13/24 11:21 Urine Bacteria Trace /hpf (NONE) 08/13/24 11:21 All radiology interpretation(s) finalized by discharge Discharge Plan Discharge Patient Disposition: Left Against Medical Advice Clinical Impression: Pancreatitis, Serum total bilirubin elevated Condition: Stable Prescriptions: New ondansetron HCl 4 mg tablet 4 mg PO Q6H PRN (Reason: nausea and vomiting) Qty: 20 0RF No Action ondansetron 4 mg tablet,disintegrating 4 mg PO Q6H PRN (Reason: nausea and vomiting) Qty: 14 0RF Discharge Orders: Discharge ED (Routine); Ordered 08/13/24 Ordered By: Tyrese Subramanian Discharge Diet: Clear Liquid Discharge Activity: Increase activity as tolerated Patient Instructions: Pancreatitis (ED) Activity Restrictions/Additional Instructions: Thank you for choosing [facility] for your healthcare needs today. It is very important that you follow up as instructed or that you return to the Emergency Department should you have concerns or if your condition changes or worsens in any way. You were seen in the emergency room with complaints of abdominal pain you are referred to the pain left upper quadrant more specifically. CT of the abdomen did not show any acute changes. Laboratory test shows an elevated bilirubin and elevated lipase these are different from when you were seen earlier. We recommend that you be admitted to the hospital kept n.p.o. and reassessed for acute pancreatitis. You preferred to leave AGAINST MEDICAL ADVICE. If you have worsening of your condition you are welcome to return anytime. Recommend clear liquid diet until your abdominal pain resolves. If it worsens you should return to the emergency room. Print Language: Korean Coding Level of Care Code ED Irrigation Engineer for Danny Munoz
--- NOTE | 2024-08-13 13:59 | USR_ITS ---
PROCEDURE INFORMATION: Exam: US Abdomen, Limited; Right Upper Quadrant Exam date and time: 08/13/2024 2:56 PM Age: 24 years old Clinical indication: Abdominal pain; Acute; Additional info: Elevate t bili and lipase TECHNIQUE: Imaging protocol: Real time ultrasound of the abdomen with image documentation. Limited exam focused on the right upper quadrant. COMPARISON: CT abdomen pelvis w con* [id number] 08/13/2024 12:29 PM FINDINGS: Liver: The liver is normal in echogenicity without evidence of fatty infiltration. No hepatic border nodularity. No hepatic mass or cyst is seen. Gallbladder: Normal gallbladder without evidence of cholelithiasis. No intraluminal sludge is seen within the gallbladder as questioned on comparison CT. No wall thickening. Gallbladder wall measures 0.3 cm. There is no sonographic Serna's sign per the sandwich and drink cart operator. No pericholecystic fluid. Biliary ducts: No evidence of intrahepatic biliary ductal dilation. Common bile duct is normal in caliber measuring 0.3 cm. Pancreas: The visualized pancreatic head and body have a normal sonographic appearance. Pancreatic tail is not well seen as is typical by ultrasound. No evidence of pancreatic ductal dilation. Right kidney: The right kidney measures 0.5 cm in long axis. The right kidney is normal in echotexture without sonographically apparent mass, stone or hydronephrosis. Portal venous: Normal hepatopetal portal venous flow. US/US gall bladder [id number] IMPRESSION: 1. Unremarkable right upper quadrant ultrasound. No evidence of cholelithiasis or cholecystitis. No sonographically apparent sludge as questioned on comparison CT.
[2024-08-13] MEDS: sodium chloride 0.9% 1,000 ML 999 ML IV (14:35)
== END 2024-08-13 16:15 | disposition left against medical advice (07) ==
PROVIDERS: Emergency Medicine; Emergency Provider Family Medicine
DX: K85.90 Acute pancreatitis without necrosis or infection, unspecified (principal); E80.7 Disorder of bilirubin metabolism, unspecified
CPT/HCPCS: 36415; 74177; 76705; 80053; 81001; 81025; 83605; 83690; 85025; 86140; 99285; J7030

== ENCOUNTER 2024-09-30 08:20 | Emergency (ER) | payer BC, MEDICAID, SELFPAY ==
[2024-09-30 08:27] VITALS: BP 123/74; PULSE 103; RESP 17; TEMP 37.1; O2SAT 100; BMI 22.4
--- NOTE | 2024-09-30 08:34 | W.ED.NAVMDI ---
HPI - Nausea/Vomiting/Diarrhea General: Chief complaint: Nausea/Vomiting/Diarrhea Stated complaint: vomitting/pos 4 week preg Time Seen by Provider: 09/30/24 08:32 History of Present Illness: 24-year-old female who presents emergency room with nausea and vomiting. She says she thinks is about 6 to 8 weeks . She said she experienced hyperemesis with her first . She says however over the last couple of days she has not been able to keep anything down. She has had decreased urine output with only 1 urination yesterday. She has some pain in her left chest with vomiting. No vaginal bleeding. No vaginal discharge. No fevers. No cough. Related Data Previous Rx's ?Medication ?Instructions ?Recorded cefdinir 300 mg capsule 300 mg PO BID 7 days #14 caps 09/30/24 ondansetron 8 mg disintegrating 8 mg PO Q6H #14 tabs 09/30/24 tablet promethazine 25 mg rectal 25 mg [place] Q6H PRN nausea and 09/30/24 suppository vomiting #12 ea Allergies Allergy/AdvReac Type Severity Reaction Status Date / Time No Known Allergies Allergy Verified 08/10/24 17:17 Review of Systems Narrative: Constitutional symptoms: Negative except as documented in HPI. Skin symptoms: Negative except as documented in HPI. Eye symptoms: Negative except as documented in HPI. ENMT symptoms: Negative except as documented in HPI. Respiratory symptoms: Negative except as documented in HPI. Cardiovascular symptoms: Negative except as documented in HPI. Gastrointestinal symptoms: Negative except as documented in HPI. Genitourinary symptoms: Negative except as documented in HPI. Musculoskeletal symptoms: Negative except as documented in HPI. Neurologic symptoms: Negative except as documented in HPI. Psychiatric symptoms: Negative except as documented in HPI. Endocrine symptoms: Negative except as documented in HPI. [facility] ED Female Reproductive History: Date of last menstrual period: 08/05/24 Physical Exam Narrative: EXAM NARRATIVE: General: Alert, no acute distress. Skin: Warm, dry. Head: Normocephalic, atraumatic. Neck: Supple, trachea midline. Eye: Extraocular movements are intact. Ears, nose, mouth and throat: Tacky oral mucosa Cardiovascular: Regular, Normal peripheral perfusion. Respiratory: Lungs are clear to auscultation, respirations are non-labored, breath sounds are equal, Symmetrical chest wall expansion. Gastrointestinal: Soft, Nontender, Non distended Musculoskeletal: Normal ROM, no deformity. Neurological: Alert and oriented, No focal neurological deficit observed. Psychiatric: Cooperative, appropriate mood & affect. Course Vital Signs: Vital signs: Vital Signs Temperature 98.7 F 09/30/24 08:27 Pulse Rate 98 09/30/24 08:48 Respiratory Rate 17 09/30/24 08:27 Blood Pressure 123/74 09/30/24 08:27 Pulse Oximetry 100 09/30/24 08:48 Oxygen Delivery Me thod Room Air 09/30/24 08:27 MDM - Nausea/Vomiting/Diarrhea Medical Decision Making Medical decision making: Differential diagnosis for this patient with nausea and vomiting including but not limited to and based on the above HPI, review of systems and physical exam: Urinary tract infection. Appendicitis. Cholecystitis. Hyperemesis. Dehydration. Renal failure. Gastroenteritis. Orders placed to evaluate differential diagnosis based on the above differential, HPI and physical exam Lab Review: Laboratory results were reviewed and interpreted by myself the emergency room physician. No leukocytosis. No anemia. No renal failure. hCG is 55,000 which would be appropriate for 6 to 8-week even perhaps a little further along. She not having an abdominal pain. No vaginal bleeding. No indication for further imaging at this time. She does have a significant urinary tract infection. 21-50 whites with 4+ bacteria. Leukocyte Estrace positive. I reviewed the patient's medical record. Reexamination: Patient is now tolerating fluids. No increased work of breathing. No altered mental status. On reexamination she is breast-feeding her other child. She tolerates Sprite. Assessment and plan: Hyperemesis gravidarum/acute nausea and vomiting Urinary tract infection Dehydration ? IV Zofran and IV normal saline bolus and IV Rocephin. - Discharged home - Discussed plan with patient. Answered any questions. - Evaluation and treatment of this problem were appropriate in the emergency setting. Lab Data 09/30/24 08:35 09/30/24 08:35 Laboratory Results WBC 9.43 10^3/uL (3.29-11.43) 09/30/24 08:35 RBC 4.69 10^6/uL (3.85-5.65) 09/30/24 08:35 Hgb 14.00 g/dL (11.27-16.99) 09/30/24 08:35 Hct 41.6 % (36-47) 09/30/24 08:35 MCV 88.7 fl (85-98) 09/30/24 08:35 MCH 29.9 pg (27-33) 09/30/24 08:35 MCHC 33.7 g/dL (30-55) 09/30/24 08:35 RDW 11.8 % (12.1-15.1) L 09/30/24 08:35 Plt Count 297 10^3/cmm (157-399) 09/30/24 08:35 MPV 10.0 fL (7.4-10.4) 09/30/24 08:35 Neut % (Auto) 76.8 % 09/30/24 08:35 Lymph % (Auto) 17.6 % 09/30/24 08:35 [place] % (Auto) 5.1 % 09/30/24 08:35 Eos % (Auto) 0.0 % 09/30/24 08:35 Baso % (Auto) 0.3 % 09/30/24 08:35 Neut # (Auto) 7.24 10^3/uL (1.8-7.7) 09/30/24 08:35 Lymph # (Auto) 1.7 10^3/uL (0.8-4.8) 09/30/24 08:35 [place] # (Auto) 0.5 10^3/uL (0.2-0.9) 09/30/24 08:35 Eos # (Auto) 0.0 10^3/uL (0.0-0.8) 09/30/24 08:35 Baso # (Auto) 0.0 10^3/uL (0.0-0.1) 09/30/24 08:35 Nucleated RBC % (auto) 0 % 09/30/24 08:35 Nucleated RBCs # 0.0 /100WBC 09/30/24 08:35 Sodium 134 mmol/L (136-145) L 09/30/24 08:35 Potassium 3.7 mmol/L (3.5-5.1) 09/30/24 08:35 Chloride 99 mmol/L (98-107) 09/30/24 08:35 Carbon Dioxide 21 mmol/L (22-29) L 09/30/24 08:35 Anion Gap 17.7 (5-19) 09/30/24 08:35 BUN 8 mg/dL (6-20) 09/30/24 08:35 Creatinine 0.4 mg/dL (0.5-0.9) L 09/30/24 08:35 GFR Calculation 199.6 mL/min (90-130) H 09/30/24 08:35 Glucose 93 mg/dL (65-115) 09/30/24 08:35 Calculated Osmolality 276 mOsm/kg (285-295) L 09/30/24 08:35 Calcium 9.0 mg/dL (8.5-10.5) 09/30/24 08:35 Total Bilirubin 1.7 mg/dL (0.15-1.2) H 09/30/24 08:35 AST 13 U/L (0-32) 09/30/24 08:35 ALT 7 U/L (0-33) 09/30/24 08:35 Alkaline Phosphatase 71 U/L (35-105) 09/30/24 08:35 Total Protein 7.7 g/dL (6.6-8.7) 09/30/24 08:35 Albumin 4.8 g/dL (3.5-5.2) 09/30/24 08:35 Globulin 2.9 g/dL (1.3-4.6) 09/30/24 08:35 Lipase 18 U/L (13-60) 09/30/24 08:35 Ser , Semi-Qnt 86957.00 mIU/mL 09/30/24 08:35 Urine Color Yellow (Yellow) 09/30/24 08:33 Urine Appearance Cloudy (CLEAR) A 09/30/24 08:33 Urine pH 6 (5-7) 09/30/24 08:33 Ur Specific [place] 1.025 (1.005-1.030) 09/30/24 08:33 Urine Protein 1+ (Negative) H 09/30/24 08:33 Urine Glucose (UA) Norm (Normal) 09/30/24 08:33 Urine Ketones 3+ (Negative) H 09/30/24 08:33 Urine Blood 2+ (Negative) H 09/30/24 08:33 Urine Nitrate Negative (Negative) 09/30/24 08:33 Urine Bilirubin Neg (Negative) 09/30/24 08:33 Urine Urobilinogen Norm mg/dL (Negative) 09/30/24 08:33 Ur Leukocyte Esterase 2+ (Negative) H 09/30/24 08:33 Urine RBC 0-2 /hpf (0-2) 09/30/24 08:33 Urine WBC 21-50 /hpf (0-5) H 09/30/24 08:33 Ur Squamous Epith Cells 21-50 /hpf (0-5) H 09/30/24 08:33 Amorphous Sediment Not Reportable 09/30/24 08:33 Urine Bacteria 4+ /hpf (NONE) H 09/30/24 08:33 Hyaline Casts 3.71 /lpf 09/30/24 08:33 Influenza A (PCR) Negative (Negative) 09/30/24 08:35 Influenza Type B (PCR) Negative (Negative) 09/30/24 08:35 RSV (PCR) Negative (Negative) 09/30/24 08:35 SARS-CoV-2 (PCR) Negative (Negative) 09/30/24 08:35 No radiology studies performed this visit Discharge Plan Discharge Patient Disposition: Home Clinical Impression: Hyperemesis gravidarum, Dehydration, Urinary tract infection affecting Condition: Stable Prescriptions: New promethazine 25 mg suppository 25 mg MN Q6H PRN (Reason: nausea and vomiting) Qty: 12 0RF ondansetron 8 mg tablet,disintegrating 8 mg PO Q6H Qty: 14 0RF Rx Instructions: Take 1/2-1 tab every 6 hours as needed for nausea and vomiting cefdinir 300 mg capsule 300 mg PO BID 7 Days Qty: 14 0RF Discharge Orders: Discharge ED (Routine); Ordered 09/30/24 Ordered By: Rola Byers Discharge Diet: Advance as tolerated Discharge Activity: Increase activity as tolerated Patient Instructions: Hyperemesis Gravidarum (ED), Urinary Tract Infection in (ED), Opioid Safety, Pain Management Activity Restrictions/Additional Instructions: Thank you for choosing [facility] for your healthcare needs today. Please realize this is an emergency room and that we are providing you with a medical screening exam and this may not be complete and all inclusive of all the testing and or work up that you may need to determine your ailment or severity of your illness. You have been screened and evaluated and felt safe for discharge. Health conditions do change or evolve sometimes and as such it is important that you follow up with your Primary Doctor to be re checked, 3-5 days is a general good time frame for follow up. You are always welcome to return to the ED for re assessment if your symptoms are worsening or you have new concerns Print Language: Citizen Of [place] Coding Level of Care Code ED Litigation Specialist for Danny Munoz
[2024-09-30 08:43] LABS: Basophils % 0.3 %; Hematocrit 41.6 % (36-47); Lymphocytes # 1.7 10^3/uL (0.8-4.8); Lymphocytes % 17.6 %; Mean Corpuscular HGB Conc 33.7 g/dL (30-55); Mean Corpuscular Hemoglobin 29.9 pg (27-33); Mean Corpuscular Volume 88.7 fl (85-98); Monocytes # 0.5 10^3/uL (0.2-0.9); Monocytes % 5.1 %; Neutrophils # 7.24 10^3/uL (1.8-7.7); Neutrophils % 76.8 %; Nucleated Red Blood Cells % 0 %; Platelet Count 297 10^3/cmm (157-399); Red Blood Count 4.69 10^6/uL (3.85-5.65); Red Cell Distribution Width 11.8 % (12.1-15.1); White Blood Count 9.43 10^3/uL (3.29-11.43)
[2024-09-30] MEDS: ondansetron 2 mg/ML SDV 2 mL 8 MG IVP (08:43)
[2024-09-30] MEDS: sodium chloride 0.9% 1,000 ML 999 ML IV (08:43)
[2024-09-30 08:48] VITALS: PULSE 98; O2SAT 100
[2024-09-30 08:51] LABS: Bacteria Urine 4+ /hpf; Hyaline Casts Urine 3.71 /lpf; RBC Urine 0-2 /hpf (0-2); Squamous Epithelial Cell Urine 21-50 /hpf (0-5); WBC Urine 21-50 /hpf (0-5)
[2024-09-30 09:17] LABS: Urine Appearance Cloudy (CLEAR); Urine Color Yellow (Yellow)
[2024-09-30 09:18] LABS: Specific Gravity, Urine 1.025 (1.005-1.030); pH Urine 6 (5-7)
[2024-09-30 09:19] LABS: Add Urine Culture? Yes; Bilirubin Urine Neg (Negative); Blood Urine 2+ (Negative); Glucose Urine UA Norm (Normal); Ketones Urine 3+ (Negative); Leukocyte Esterase Urine 2+ (Negative); Nitrate Urine Negative (Negative); Protein Urine 1+ (Negative); Urobilinogen Urine Norm (Negative)
[2024-09-30 09:23] LABS: Influenza A NEGATIVE (Negative); Influenza B NEGATIVE (Negative); Respiratory Syncytial Virus Ce NEGATIVE (Negative); SARS-CoV-2 PCR NEGATIVE (Negative)
[2024-09-30 09:27] LABS: Alanine Aminotransferase 7 U/L (0-33); Albumin Level 4.8 g/dL (3.5-5.2); Alkaline Phosphatase 71 U/L (35-105); Anion Gap 17.7 (5-19); Aspartate Amino Transferase 13 U/L (0-32); Blood Urea Nitrogen 8 mg/dL (6-20); Carbon Dioxide 21 mmol/L (22-29); Chloride 99 mmol/L (98-107); Creatinine Clr Calc Pharmacy 189.7425; Globulin 2.9 g/dL (1.3-4.6); Glomerular Filtration Rate 199.6 mL/min (90-130); Glucose 93 mg/dL (65-115); Lipase 18 U/L (13-60); Osmolality Calculated 276 mOsm/kg (285-295); Potassium 3.7 mmol/L (3.5-5.1); Sodium 134 mmol/L (136-145); Total Bilirubin 1.7 mg/dL (0.15-1.2); Total Protein 7.7 g/dL (6.6-8.7)
[2024-09-30] MEDS: cefTRIAXone 1,000 mg SDV 1000 MG IVP (10:11)
[2024-09-30 10:20] VITALS: BP 122/65; PULSE 99; O2SAT 98
== END 2024-09-30 10:37 | disposition home or self-care (01) ==
PROVIDERS: Emergency Provider Emergency Medicine
DX: O21.1 Hyperemesis gravidarum with metabolic disturbance (principal); O23.41 Unspecified infection of urinary tract in pregnancy, first trimester; N39.0 Urinary tract infection, site not specified
CPT/HCPCS: 36415; 80053; 81001; 83690; 84702; 85025; 87086; 87637; 96361; 96374; 96375; 99284; J0696; J2405; J7030

== ENCOUNTER 2024-11-04 19:14 | Emergency (ER) | payer BC, MEDICAID, SELFPAY ==
[2024-11-04 19:23] VITALS: BP 108/63; PULSE 94; RESP 18; TEMP 36.9; O2SAT 98
[2024-11-04 20:55] LABS: Basophils % 0.3 %; Eosinophils % 0.3 %; Lymphocytes # 2.5 10^3/uL (0.8-4.8); Lymphocytes % 36.5 %; Mean Corpuscular HGB Conc 33.9 g/dL (30-55); Mean Corpuscular Hemoglobin 30.1 pg (27-33); Mean Corpuscular Volume 88.8 fl (85-98); Mean Platelet Volume 10.2 fL (7.4-10.4); Monocytes # 0.3 10^3/uL (0.2-0.9); Monocytes % 4.9 %; Neutrophils # 4.02 10^3/uL (1.8-7.7); Neutrophils % 57.7 %; Nucleated Red Blood Cells % 0 %; Platelet Count 249 10^3/cmm (157-399); Red Blood Count 4.28 10^6/uL (3.85-5.65); Red Cell Distribution Width 11.9 % (12.1-15.1); White Blood Count 6.96 10^3/uL (3.29-11.43)
[2024-11-04 21:29] LABS: Anion Gap 14.8 (5-19); Blood Urea Nitrogen 7 mg/dL (6-20); Calcium 9.3 mg/dL (8.5-10.5); Carbon Dioxide 22 mmol/L (22-29); Chloride 103 mmol/L (98-107); Glomerular Filtration Rate 154.3 mL/min (90-130); Glucose 92 mg/dL (65-115); Osmolality Calculated 280 mOsm/kg (285-295); Potassium 3.8 mmol/L (3.5-5.1); Sodium 136 mmol/L (136-145)
[2024-11-04 23:18] LABS: Bilirubin Urine Negative (Negative); Blood Urine 3+ (Negative); Glucose Urine UA Negative (Normal); Ketones Urine 2+ (Negative); Leukocyte Esterase Urine 2+ (Negative); Nitrate Urine Negative (Negative); Protein Urine 1+ (Negative); Specific Gravity, Urine 1.019 (1.005-1.030); Urine Appearance Clear (CLEAR); pH Urine 5.5 (5-7)
[2024-11-04 23:23] LABS: Add Urine Microscopic? YES; Bacteria Urine 1+ /hpf; Hyaline Casts Urine 0-4 /lpf; RBC Urine >100 /hpf (0-2)
[2024-11-04 23:27] VITALS: BP 142/85; PULSE 85; RESP 16; O2SAT 98
[2024-11-04 23:38] LABS: Urine Color Orange (Yellow)
[2024-11-05] MEDS: ketorolac 30 mg/mL INJ 15 MG IM (00:55)
[2024-11-05] MEDS: HYDROcodone-acetaminophen 10-325 mg Tablet 1 TAB PO (00:56)
--- NOTE | 2024-11-05 02:03 | W.ED.PREGNAN ---
HPI - General: Chief complaint: Vaginal Bleeding Stated complaint: 3mth preg heavy bleeding Time Seen by Provider: 11/04/24 23:39 Source: patient Mode of arrival: ambulatory Limitations: no limitations History of Present Illness: Patient presents complaint of vaginal bleeding, normal cramping. Reports 13 weeks . She is a history of G 2, P1 full-term no complications. The sexual intercourse was a week ago. Bleeding started this evening with cramping. Lots of clots and soaking pad. No new medications no abdominal trauma. LMP 08/05/2024 Date of Last Menstrual Period: 08/05/24 Related Data Previous Rx's ?Medication ?Instructions ?Recorded ondansetron 8 mg disintegrating 8 mg PO Q6H #14 tabs 09/30/24 tablet promethazine 25 mg rectal 25 mg [place] Q6H PRN nausea and 09/30/24 suppository vomiting #12 ea mifepristone 200 mg tablet 200 mg PO ONCE #1 tab 11/05/24 Allergies Allergy/AdvReac Type Severity Reaction Status Date / Time No Known Allergies Allergy Verified 11/04/24 19:26 Review of Systems General: Reports: 10 or more systems reviewed and unremarkable except in HPI and below [facility] ED Female Reproductive History: Date of last menstrual period: 08/05/24 Physical Exam Narrative: EXAM NARRATIVE: Adult female no acute distress, sitting up in bed, does appear to be rocking back and forth secondary to pain per patient. Pain is in the lower pelvis radiates [place] to the back. Pulses are regular rate and rhythm. Appears to be neuro intact. Breathing is normal chest rise symmetric. Abdomen nontender. Moving all 4 extremities. Ambulation normal. Course Vital Signs: Vital signs: Vital Signs Temperature 98.4 F 11/04/24 19:23 Pulse Rate 85 11/04/24 23:27 Respiratory Rate 16 11/04/24 23:27 Blood Pressure 142/85 11/04/24 23:27 Pulse Oximetry 98 11/04/24 23:27 Oxygen Delivery Me thod Room Air 11/04/24 23:27 MDM - OB/Uterine Contractions Medical Decision Making Patient with intrauterine demise, measuring about 8 weeks with no heart rate. Beta-hCG has significantly down trended. Results have been reviewed with the patient and her significant other. Advised them to take some time for comfort. and that is okay to grieve, reassured patient this is not her fault. Patient knows to follow-up with OB and has appointment on the . She will call and notify them. I have discussed with her pain medication and taking nausea medicine. As well as medication to help complete the miscarriage. Medical Records I reviewed the patient's medical records. Lab Data I reviewed the patient's lab results. 11/04/24 20:47 11/04/24 20:47 Radiology Impressions Obstetrics Ultrasound 11/05/24 22:20 IMPRESSION: Single intrauterine fetus. Negative for cardiac activity concerning for demise. Close clinical correlation, serial beta hCG levels and follow-up ultrasound as clinically indicated advised. ADDENDUM: 11/05/24 0118 THIS REPORT CONTAINS FINDINGS THAT MAY BE CRITICAL TO PATIENT CARE. The findings were verbally communicated via telephone conference with FRANK ORTEGA at 1:17 AM CDT on 11/05/2024. The findings were acknowledged and understood. Laboratory Results WBC 6.96 10^3/uL (3.29-11.43) 11/04/24 20:47 RBC 4.28 10^6/uL (3.85-5.65) 11/04/24 20:47 Hgb 12.90 g/dL (11.27-16.99) 11/04/24 20:47 Hct 38.0 % (36-47) 11/04/24 20:47 MCV 88.8 fl (85-98) 11/04/24 20:47 MCH 30.1 pg (27-33) 11/04/24 20:47 MCHC 33.9 g/dL (30-55) 11/04/24 20:47 RDW 11.9 % (12.1-15.1) L 11/04/24 20:47 Plt Count 249 10^3/cmm (157-399) 11/04/24 20:47 MPV 10.2 fL (7.4-10.4) 11/04/24 20:47 Neut % (Auto) 57.7 % 11/04/24 20:47 Lymph % (Auto) 36.5 % 11/04/24 20:47 [place] % (Auto) 4.9 % 11/04/24 20:47 Eos % (Auto) 0.3 % 11/04/24 20:47 Baso % (Auto) 0.3 % 11/04/24 20:47 Neut # (Auto) 4.02 10^3/uL (1.8-7.7) 11/04/24 20: Lymph # (Auto) 2.5 10^3/uL (0.8-4.8) 11/04/24 20:47 [place] # (Auto) 0.3 10^3/uL (0.2-0.9) 11/04/24: Eos # (Auto) 0.0 10^3/uL (0.0-0.8) 11/04/24 20: Baso # (Auto) 0.0 10^3/uL (0.0-0.1) 11/04/24: Nucleated RBC % (auto) 0 % 11/04/24: Nucleated RBCs # 0.0 /100WBC 11/04/24:47 Sodium 136 mmol/L (136-145) 11/04/24: Potassium 3.8 mmol/L (3.5-5.1) 11/04/24: Chloride 103 mmol/L (98-107) 11/04/24: Carbon Dioxide 22 mmol/L (22-29) 11/04/24: Anion Gap 14.8 (5-19) 11/04/24: BUN 7 mg/dL (6-20) 11/04/24: Creatinine 0.5 mg/dL (0.5-0.9) 11/04/24: GFR Calculation 154.3 mL/min (90-130) H 11/04/24: Glucose 92 mg/dL (65-115) 11/04/24: Calculated Osmolality 280 mOsm/kg (285-295) L 11/04/24: Calcium 9.3 mg/dL (8.5-10.5) 11/04/24: Ser , Semi-Qnt 2353.00 mIU/mL 11/04/24: Urine Color [place] (Yellow) A 11/04/24 23:04 Urine Appearance Clear (CLEAR) 11/04/24 23:04 Urine pH 5.5 (5-7) 11/04/24 23:04 Ur Specific [place] 1.019 (1.005-1.030) 11/04/24 23:04 Urine Protein 1+ (Negative) A 11/04/24 23:04 Urine Glucose (UA) Negative (Normal) 11/04/24 23:04 Urine Ketones 2+ (Negative) H 11/04/24 23:04 Urine Blood 3+ (Negative) A 11/04/24 23:04 Urine Nitrate Negative (Negative) 11/04/24 23:04 Urine Bilirubin Negative (Negative) 11/04/24 23:04 Urine Urobilinogen 1.0 mg/dL (Negative) 11/04/24 23:04 Ur Leukocyte Esterase 2+ (Negative) A 11/04/24 23:04 Urine RBC >100 /hpf (0-2) H 11/04/24 23:04 Urine WBC 6-10 /hpf (0-5) 11/04/24 23:04 Ur Squamous Epith Cells 11-20 /hpf (0-5) H 11/04/24 23:04 Amorphous Sediment Not Reportable 11/04/24 23:04 Urine Bacteria 1+ /hpf (NONE) H 11/04/24 23:04 Hyaline Casts 0-4 /lpf H 11/04/24 23:04 All radiology interpretation(s) finalized by discharge ED provider radiology interpretation(s): Personally reviewed ultrasound images. Intrauterine demise. Discharge Plan Discharge Patient Disposition: Home Clinical Impression: Incomplete Condition: Stable Prescriptions: New mifepristone 200 mg tablet 200 mg PO ONCE Qty: 1 0RF No Action promethazine 25 mg suppository 25 mg [place] Q6H PRN (Reason: nausea and vomiting) Qty: 12 0RF ondansetron 8 mg tablet,disintegrating 8 mg PO Q6H Qty: 14 0RF Rx Instructions: Take 1/2-1 tab every 6 hours as needed for nausea and vomiting Discharge Orders: Discharge ED (Routine); Ordered 11/05/24 Ordered By: Frank Ortega Discharge Diet: Usual diet Discharge Activity: Resume usual activity Patient Instructions: Miscarriage (ED), Opioid Safety Stand Alone Forms: Work/School Release Print Language: [place] Coding Level of Care Code ED Equipment Associate for Danny Munoz
--- NOTE | 2024-11-05 22:20 | USR_ITS ---
PROCEDURE INFORMATION: Exam: US First Trimester, Transabdominal and US , Transvaginal Exam date and time: 11/05/2024 12:13 AM Age: 24 years old Clinical indication: Lmp or gestational age (in weeks): 13w0d by lmp 8w4d CR; Antepartum complications; Bleeding; LABS AND CLINICAL REPORTS: Last menstrual period start date: 08/05/2024 Gestational age (Established): 13 w 0 d Estimated due date (Established): 05/12/2025 TECHNIQUE: Imaging protocol: Real-time transabdominal obstetrical ultrasound of the maternal pelvis and a first trimester , less than 14 weeks 0 days, with image documentation. Transvaginal imaging was used for better evaluation of the fetus, adnexa, and/or cervix. COMPARISON: US gall bladder [id number] 08/13/2024 2:56 PM FINDINGS: GESTATION: Gestation: Single intrauterine gestation. Yolk sac is regular and round in morphology. Embryo/ cardiac activity (BPM): Negative for cardiac activity concerning for demise. Extra-embryonic membranes/Placenta: Unremarkable. No subchorionic bleed. Amniotic/Chorionic fluid: Amniotic and extra-amniotic fluid are normal for gestational age. BIOMETRY: Gestational age (AUA): 8 weeks 4 days. MATERNAL: Uterus: Unremarkable. Cervix: Cervical length measures 3.2 cm. Right ovary/adnexa: Obscured by lack of adequate acoustic window. Left ovary/adnexa: Obscured by lack of adequate acoustic window. Intraperitoneal space: No intraperitoneal free fluid. US/US OB <=14 wk fetus w transvag IMPRESSION: Single intrauterine fetus. Negative for cardiac activity concerning for demise. Close clinical correlation, serial beta hCG levels and follow-up ultrasound as clinically indicated advised.
== END 2024-11-05 02:54 | disposition home or self-care (01) ==
PROVIDERS: Emergency Provider Emergency Medicine
DX: O03.4 Incomplete spontaneous abortion without complication (principal); Z3A.13 13 weeks gestation of pregnancy
CPT/HCPCS: 76801; 76817; 80048; 81001; 84702; 85025; 96372; 99284; J1885; J9999